=== PATIENT | male | born 1980 | race Caucasian/White ===

== ENCOUNTER 2017-10-08 11:03 | Emergency (ER) | payer OTHER ==
[~2017-10-08] VITALS: Ht 193 cm; Wt 71.2 kg
[~2017-10-08 11:03] MED LIST: HYDROCODON-ACE1 EAC7 PO; NAPROSYN500 MG PO; NAPROXEN500 MG PO; NORCO 5/3251 TABLET PO; PREDNISONE20 MG PO; PROZAC40 MG PO
[2017-10-08 11:15] VITALS: BP 141/79
[2017-10-08] MEDS ORDERED: NAPROSYN500 MG PO (12:33)
[2017-10-08] MEDS ORDERED: CLEOCIN300 MG PO (12:33)
== END 2017-10-08 12:51 | disposition home or self-care (01) ==
LOC: EME 11:03
PROC: 3E0T3BZ Introduction of Anesthetic Agent into Peripheral Nerves and Plexi, Percutaneous Approach (ICD-10-PCS; principal; 2017-10-08)
DX: K04.7 Periapical abscess without sinus (principal); S02.5XXA Fracture of tooth (traumatic), initial encounter for closed fracture; F17.200 Nicotine dependence, unspecified, uncomplicated; Z88.5 Allergy status to narcotic agent; Z88.0 Allergy status to penicillin